=== PATIENT | female | born 1950 | race Caucasian/White ===

== ENCOUNTER 2018-04-14 04:38 | Inpatient (IN) | payer MEDICARE, MEDICAID ==
[~2018-04-14] VITALS: Ht 152.4 cm; Wt 52.4 kg
[2018-04-14] MEDS ORDERED: ALBUTEROL/IPRATROPIUM 2.5MG/0.5MG, 3 ML ONE (05:15)
[2018-04-14] MEDS ORDERED: ALBUTEROL/IPRATROPIUM 2.5MG/0.5MG, 3 ML NPPB ONE (05:30)
[2018-04-14] MEDS ORDERED: SODIUM CHLORIDE FLUSH 10ML SYR IVF ONE (05:30)
[2018-04-14] MEDS ORDERED: SODIUM CHLORIDE 0.9% 1,000ML IVBOLUS ONE (05:30)
[2018-04-14 05:49] LABS: BASOPHILS # (AUTO) 0.02 x10^3/uL (0-0.1); BASOPHILS % (AUTO) 0 % (0-1); EOSINOPHILS # (AUTO) 0.32 x10^3/uL (0-0.4); EOSINOPHILS % (AUTO) 5 % (1-7); LYMPHOCYTES # (AUTO) 1.58 x10^3/uL (1-3.4); LYMPHOCYTES % (AUTO) 22 % (22-44); MD NO; MEAN CORPUSCULAR HEMOGLOBIN 31.4 pg (27.0-34.8); MEAN CORPUSCULAR VOLUME 95.1 fL (80-100); MEAN PLATELET VOLUME 7.3 fL (7.4-10.4); MONOCYTES # (AUTO) 0.56 x10^3/uL (0.2-0.8); MONOCYTES % (AUTO) 8 % (2-9); NEUTROPHILS # (AUTO) 4.66 x10^3/uL (1.8-6.8); NEUTROPHILS % (AUTO) 65 % (42-75); PLATELET COUNT 307 x10^3/uL (130-400); RED BLOOD COUNT 4.23 x10^6/uL (3.82-5.3); RED CELL DISTRIBUTION WIDTH 13.4 % (9.6-15.2)
[2018-04-14] MEDS ORDERED: FLUT1DIS3 INH (05:58)
[2018-04-14] MEDS ORDERED: BIOT25005 PO (05:58)
[2018-04-14] MEDS ORDERED: MECL-76 PO (05:58)
[2018-04-14] MEDS ORDERED: PHEN100C4 PO (05:58)
[2018-04-14] MEDS ORDERED: CLOR3.75 PO (05:58)
[2018-04-14] MEDS ORDERED: TEMA15CA PO (05:58)
[2018-04-14] MEDS ORDERED: PRAV20TA2 PO (05:58)
[2018-04-14] MEDS ORDERED: LYSI500T25 PO (05:58)
[2018-04-14] MEDS ORDERED: POTA10TA11 PO (05:58)
[2018-04-14] MEDS ORDERED: MELA1TAB8 PO (05:58)
[2018-04-14] MEDS ORDERED: VALE445C2 PO (05:58)
[2018-04-14] MEDS ORDERED: CARB1TAB44 PO (05:58)
[2018-04-14] MEDS ORDERED: [UNRECOGNIZED DRUG - CODE] PO (05:58)
[2018-04-14] MEDS ORDERED: HYDR25TA11 PO (05:58)
[2018-04-14] MEDS ORDERED: DULO30CA2 PO (05:58)
[2018-04-14] MEDS ORDERED: POTA20TA89 PO (05:58)
[2018-04-14] MEDS ORDERED: GABA-827 PO (05:58)
[2018-04-14] MEDS ORDERED: SODI650T PO (05:58)
[2018-04-14] MEDS ORDERED: LATA2.5D3 EACHEYE (05:58)
[2018-04-14] MEDS ORDERED: SIME125C67 PO (05:58)
[2018-04-14] MEDS ORDERED: HYDR-3307 PO (05:58)
[2018-04-14] MEDS ORDERED: BUTA1CAP59 PO (05:58)
[2018-04-14] MEDS ORDERED: MIRT30TA6 PO (05:58)
[2018-04-14] MEDS ORDERED: BRIM5DRO2 OP (05:58)
[2018-04-14] MEDS ORDERED: HYDR40TA PO (05:58)
[2018-04-14] MEDS ORDERED: BUME0.5T PO (05:58)
[2018-04-14] MEDS ORDERED: TIZA4CAP PO (05:58)
[2018-04-14] MEDS ORDERED: ESTR1TAB15 PO (05:58)
[2018-04-14] MEDS ORDERED: PROM25TA10 PO (05:58)
[2018-04-14] MEDS ORDERED: GREE1CAP PO (05:58)
[2018-04-14] MEDS ORDERED: MONT10TA9 PO (05:58)
[2018-04-14] MEDS ORDERED: BENZ200C48 PO (05:58)
[2018-04-14] MEDS ORDERED: ESOM40CA PO (05:58)
[2018-04-14] MEDS ORDERED: LOSA1TAB19 PO (05:58)
[2018-04-14] MEDS ORDERED: [UNRECOGNIZED DRUG - CODE] OP (05:58)
[2018-04-14] MEDS ORDERED: CLOP75TA PO (05:58)
[2018-04-14 06:00] LABS: ALANINE AMINOTRANSFERASE 7 U/L (12-78); ALBUMIN 3.8 g/dL (3.4-5.0); ANION GAP 7 mmol/L (5-15); CALCIUM 8.4 mg/dL (8.5-10.1); CHLORIDE 105 mmol/L (98-107); CREATININE 0.52 mg/dL (0.55-1.02)
[2018-04-14 06:04] LABS: ALKALINE PHOSPHATASE 159 U/L (45-117); BILIRUBIN,TOTAL 0.3 mg/dL (0.2-1.0); TOTAL PROTEIN 6.9 g/dL (6.4-8.2); TROPONIN I < 0.015 ng/mL (0.000-0.045)
[2018-04-14] MEDS ORDERED: LEVOFLOXACIN/PMX 750MG/150ML 150 ML ONE (06:11)
[2018-04-14] MEDS ORDERED: LEVOFLOXACIN/PMX 750MG/150ML 150 ML IV ONE (06:30)
[2018-04-14 07:02] LABS: CULTURE INDICATED? YES; MICROSCOPIC INDICATED
[2018-04-14] MEDS: SODIUM CHLORIDE 0.9% 1,000 ML IV SCH ×2 (10:10→18:15)
[2018-04-14] MEDS ORDERED: hydrALAzine 20 MG/ML, 1ML IVPush PRN (10:30)
[2018-04-14] MEDS ORDERED: ACETAMINOPHEN 325 MG TABLET PO PRN (10:30)
[2018-04-14 10:55] LABS: THYROID STIMULATING HORMONE 1.53 mIU/L (0.358-3.740)
[2018-04-14 11:04] VITALS: BP 156/64
[2018-04-14] MEDS ORDERED: TEMPLATE NON-FORMULARY MED. (Brimonidine Tartrate/Timolol (Combigan Eye Drops) 1 DROP) OP SCH ×2 (12:00→12:34)
[2018-04-14] MEDS ORDERED: TEMPLATE NON-FORMULARY MED. (Biotin** 5,000 MG) PO SCH (12:00)
[2018-04-14] MEDS ORDERED: MECLIZINE CHEWABLE 25 MG TAB PO PRN (12:00)
[2018-04-14] MEDS ORDERED: BENZONATATE 100 MG CAPSULE PO PRN (12:00)
[2018-04-14] MEDS ORDERED: PROMETHAZINE 25MG TABLET PO PRN (12:00)
[2018-04-14] MEDS ORDERED: TEMAZEPAM 15 MG CAPSULE PO PRN (12:00)
[2018-04-14] MEDS ORDERED: HYDROCODONE BITARTRATE PO PRN (12:00)
[2018-04-14] MEDS ORDERED: LYSINE HCL 1000 MG PO SCH (12:00)
[2018-04-14] MEDS ORDERED: HYDROcodone/APAP 10/325 MG TABLET PO PRN (12:00)
[2018-04-14] MEDS ORDERED: FLUTICASONE/VILANTEROL 100-25MCG/INH INH SCH (12:00)
[2018-04-14] MEDS ORDERED: TEMPLATE NON-FORMULARY MED. (Losartan/Hydrochlorothiazide** (Losartan-Hctz 50-12.5 Mg Tab PO SCH (12:00)
[2018-04-14 12:33] VITALS: BP 126/76
[2018-04-14] MEDS: DULOXETINE 30 MG CAPSULE.DR PO SCH ×2 (13:09→21:39)
[2018-04-14] MEDS: GABAPENTIN 400 MG CAPSULE PO SCH ×3 (13:09→21:41)
[2018-04-14] MEDS: SIMETHICONE 80 MG CHEW TAB PO SCH (13:09)
[2018-04-14] MEDS: PHENYTOIN 100 MG CAPSULE PO SCH (13:09)
[2018-04-14] MEDS: CLOPIDOGREL 75 MG TABLET PO SCH (13:09)
[2018-04-14] MEDS: CARBIDOPA/LEVODOPA CR 50 MG/200 MG TABLET PO SCH ×3 (13:10→21:39)
[2018-04-14] MEDS: PANTOPROZOLE 40MG TABLET PO SCH (13:10)
[2018-04-14] MEDS ORDERED: LEVOFLOXACIN/PMX 500MG/100ML 100 ML IV SCH (15:30)
[2018-04-14] MEDS: TIZANIDINE 4MG TABLET PO SCH ×2 (16:00→21:38)
[2018-04-14 19:20] VITALS: BP_SYST 129; BP_SYST 130; BP_SYST 145; BP_DIAS 72; BP_DIAS 77; BP_DIAS 78
[2018-04-14] MEDS: MONTELUKAST 10 MG TABLET PO SCH (21:39)
[2018-04-14] MEDS: PYRIDOXINE 50MG TABLET PO SCH (21:40)
[2018-04-14] MEDS: MELATONIN 5 MG TABLET PO SCH (21:40)
[2018-04-14] MEDS: MIRTAZAPINE 30 MG TAB.RAPDIS PO SCH (21:41)
[2018-04-14] MEDS: PRAVASTATIN 20 MG TABLET PO SCH (21:41)
[2018-04-14] MEDS: TEMPLATE NON-FORMULARY MED. (Brimonidine Tartrate/Timolol (Combigan Eye Drops) 1 DROP) OP SCH (21:44)
[2018-04-14] MEDS: LATANOPROST OPHTH 0.005%, 2.5ML HOMEOPHTH SCH (21:44)
[2018-04-15 02:22] VITALS: BP 152/81
[2018-04-15] MEDS: SODIUM CHLORIDE 0.9% 1,000 ML IV SCH ×2 (02:27→11:30)
[2018-04-15] MEDS ORDERED: PHARMACOKINETIC MONITORING MC PRN (02:30)
[2018-04-15] MEDS ORDERED: VANCOMYCIN PMX 1GM/200ML 200 ML IV SCH (02:30)
[2018-04-15] MEDS ORDERED: PHARMACOKINETIC CONSULTATION MC ONE (02:30)
[2018-04-15] MEDS ORDERED: VANCOMYCIN PER PHARMACY MC PRN (02:30)
[2018-04-15 04:38] LABS: BASOPHILS # (AUTO) 0.02 x10^3/uL (0-0.1); BASOPHILS % (AUTO) 1 % (0-1); EOSINOPHILS # (AUTO) 0.16 x10^3/uL (0-0.4); EOSINOPHILS % (AUTO) 3 % (1-7); LYMPHOCYTES # (AUTO) 1.78 x10^3/uL (1-3.4); LYMPHOCYTES % (AUTO) 35 % (22-44); MD NO; MEAN CORPUSCULAR HEMOGLOBIN 31.9 pg (27.0-34.8); MEAN CORPUSCULAR HGB CONC 33.6 g/dL (32.4-35.8); MEAN CORPUSCULAR VOLUME 94.9 fL (80-100); MEAN PLATELET VOLUME 7.4 fL (7.4-10.4); MONOCYTES # (AUTO) 0.52 x10^3/uL (0.2-0.8); MONOCYTES % (AUTO) 10 % (2-9); NEUTROPHILS # (AUTO) 2.68 x10^3/uL (1.8-6.8); NEUTROPHILS % (AUTO) 52 % (42-75); PLATELET COUNT 232 x10^3/uL (130-400); RED BLOOD COUNT 3.35 x10^6/uL (3.82-5.3); RED CELL DISTRIBUTION WIDTH 13.2 % (9.6-15.2)
[2018-04-15 04:50] LABS: CALCIUM 7.4 mg/dL (8.5-10.1); CHLORIDE 109 mmol/L (98-107)
[2018-04-15 04:57] LABS: ANION GAP 6 mmol/L (5-15); CHOL/HDL RATIO 2.2; CHOLESTEROL, TOTAL 143 mg/dL (140-239); CREATININE 0.47 mg/dL (0.55-1.02); HDL CHOL % 45 % (28-40); HDL CHOLESTEROL (DIRECT) 64 mg/dL (40-60); LDL CHOLESTEROL,CALCULATED 58 mg/dL (54-169); LDL/HDL RATIO 0.9 (0.5-3.0); TRIGLYCERIDES 107 mg/dL (50-200); VLDL CHOLESTEROL 21 mg/dL (0-25)
[2018-04-15] MEDS: CARBIDOPA/LEVODOPA CR 50 MG/200 MG TABLET PO SCH ×4 (05:34→21:15)
[2018-04-15] MEDS ORDERED: CALCIUM CARBONATE 500 MG TAB.CHEW PO PRN (06:00)
[2018-04-15 06:46] LABS: FOLATE LEVEL 7.9 ng/mL (3.1-17.5)
[2018-04-15 07:03] VITALS: BP 146/77
[2018-04-15] MEDS ORDERED: HYDROCHLOROTHIAZIDE 12.5 MG CAPSULE PO SCH (09:00)
[2018-04-15] MEDS ORDERED: LOSARTAN 50MG TABLET PO SCH (09:00)
[2018-04-15] MEDS: FLUTICASONE/VILANTEROL 200-25MCG/INH INH SCH (09:55)
[2018-04-15] MEDS: GABAPENTIN 400 MG CAPSULE PO SCH ×3 (09:56→21:14)
[2018-04-15] MEDS: SIMETHICONE 80 MG CHEW TAB PO SCH (09:56)
[2018-04-15] MEDS: POTASSIUM CHLORIDE 10 MEQ TABLET.ER PO SCH (09:56)
[2018-04-15] MEDS: HYDROCHLOROTHIAZIDE 12.5 MG CAPSULE PO SCH (09:56)
[2018-04-15] MEDS: DULOXETINE 30 MG CAPSULE.DR PO SCH ×2 (09:56→21:15)
[2018-04-15] MEDS: CLOPIDOGREL 75 MG TABLET PO SCH (09:56)
[2018-04-15] MEDS: PHENYTOIN 100 MG CAPSULE PO SCH (09:57)
[2018-04-15] MEDS: LOSARTAN 50MG TABLET PO SCH (09:57)
[2018-04-15] MEDS: TEMPLATE NON-FORMULARY MED. (Brimonidine Tartrate/Timolol (Combigan Eye Drops) 1 DROP) OP SCH ×2 (09:57→21:00)
[2018-04-15] MEDS: TIZANIDINE 4MG TABLET PO SCH ×3 (09:57→21:15)
[2018-04-15] MEDS: PANTOPROZOLE 40MG TABLET PO SCH (09:57)
[2018-04-15 12:07] VITALS: BP 121/75
[2018-04-15] MEDS ORDERED: POTASSIUM CHLORIDE 20 MEQ TAB.ER.PRT PO ONE (15:30)
[2018-04-15] MEDS ORDERED: TIZA4TAB PO (16:35)
[2018-04-15] MEDS ORDERED: PHEN100C4 PO (16:35)
[2018-04-15] MEDS ORDERED: FLUT1DIS3 INH (16:35)
[2018-04-15 19:30] VITALS: BP 162/82
[2018-04-15] MEDS: LATANOPROST OPHTH 0.005%, 2.5ML HOMEOPHTH SCH (21:00)
[2018-04-15] MEDS: PYRIDOXINE 50MG TABLET PO SCH (21:14)
[2018-04-15] MEDS: MONTELUKAST 10 MG TABLET PO SCH (21:14)
[2018-04-15] MEDS: MELATONIN 5 MG TABLET PO SCH (21:14)
[2018-04-15] MEDS: PRAVASTATIN 20 MG TABLET PO SCH (21:15)
[2018-04-15] MEDS: MIRTAZAPINE 30 MG TAB.RAPDIS PO SCH (21:15)
[2018-04-15] MEDS: HYDROcodone/APAP 10/325 MG TABLET PO PRN (21:24)
[2018-04-16] MEDS ORDERED: VANCOMYCIN PMX 1GM/200ML 200 ML IV SCH (02:30)
[2018-04-16 03:32] VITALS: BP 157/76
[2018-04-16 04:50] LABS: BASOPHILS # (AUTO) 0.02 x10^3/uL (0-0.1); BASOPHILS % (AUTO) 1 % (0-1); EOSINOPHILS # (AUTO) 0.36 x10^3/uL (0-0.4); EOSINOPHILS % (AUTO) 7 % (1-7); LYMPHOCYTES # (AUTO) 1.72 x10^3/uL (1-3.4); LYMPHOCYTES % (AUTO) 35 % (22-44); MD NO; MEAN CORPUSCULAR HEMOGLOBIN 31.4 pg (27.0-34.8); MEAN CORPUSCULAR VOLUME 95.3 fL (80-100); MEAN PLATELET VOLUME 7.3 fL (7.4-10.4); MONOCYTES # (AUTO) 0.44 x10^3/uL (0.2-0.8); MONOCYTES % (AUTO) 9 % (2-9); NEUTROPHILS # (AUTO) 2.37 x10^3/uL (1.8-6.8); NEUTROPHILS % (AUTO) 48 % (42-75); PLATELET COUNT 212 x10^3/uL (130-400); RED BLOOD COUNT 3.41 x10^6/uL (3.82-5.3); RED CELL DISTRIBUTION WIDTH 13.2 % (9.6-15.2)
[2018-04-16 04:59] LABS: % IRON SATURATION 24 % (20-55); ANION GAP 6 mmol/L (5-15); CHLORIDE 105 mmol/L (98-107); CREATININE 0.45 mg/dL (0.55-1.02); IRON LEVEL 77 mcg/dL (50-170); TOTAL IRON BINDING CAPACITY 319 mcg/dL (250-450)
[2018-04-16] MEDS: CARBIDOPA/LEVODOPA CR 50 MG/200 MG TABLET PO SCH ×4 (05:28→21:40)
[2018-04-16 07:09] VITALS: BP 167/79
[2018-04-16] MEDS ORDERED: TIZANIDINE 4MG TABLET PO PRN (09:00)
[2018-04-16] MEDS: FLUTICASONE/VILANTEROL 200-25MCG/INH INH SCH (09:12)
[2018-04-16] MEDS: TEMPLATE NON-FORMULARY MED. (Brimonidine Tartrate/Timolol (Combigan Eye Drops) 1 DROP) OP SCH ×2 (09:12→21:38)
[2018-04-16] MEDS: GABAPENTIN 400 MG CAPSULE PO SCH ×3 (09:12→21:40)
[2018-04-16] MEDS: POTASSIUM CHLORIDE 10 MEQ TABLET.ER PO SCH (09:13)
[2018-04-16] MEDS: HYDROCHLOROTHIAZIDE 12.5 MG CAPSULE PO SCH (09:13)
[2018-04-16] MEDS: PANTOPROZOLE 40MG TABLET PO SCH (09:13)
[2018-04-16] MEDS: SIMETHICONE 80 MG CHEW TAB PO SCH (09:13)
[2018-04-16] MEDS: LOSARTAN 50MG TABLET PO SCH (09:13)
[2018-04-16] MEDS: CLOPIDOGREL 75 MG TABLET PO SCH (09:14)
[2018-04-16] MEDS: DULOXETINE 30 MG CAPSULE.DR PO SCH ×2 (09:14→21:40)
[2018-04-16] MEDS: CYANOCOBALAMIN 1,000 MCG TABLET PO SCH (09:14)
[2018-04-16] MEDS: PHENYTOIN 100 MG CAPSULE PO SCH ×3 (09:15→21:40)
[2018-04-16] MEDS: CEFTRIAXONE 2 GM in SODIUM CHLORIDE 0.9% 50 ML IV SCH (11:02)
[2018-04-16] MEDS: ENOXAPARIN 40 MG/0.4 ML SQ SCH (11:18)
[2018-04-16] MEDS: AZITHROMYCIN 500 MG in SODIUM CHLORIDE 0.9% 250 ML IV SCH (11:53)
[2018-04-16 13:04] VITALS: BP 154/84
[2018-04-16] MEDS ORDERED: ASA/APAP/ CAFFEINE TABLET PO PRN (13:30)
[2018-04-16 19:48] VITALS: BP 162/87
[2018-04-16] MEDS: LATANOPROST OPHTH 0.005%, 2.5ML HOMEOPHTH SCH (21:38)
[2018-04-16] MEDS: PYRIDOXINE 50MG TABLET PO SCH (21:39)
[2018-04-16] MEDS: MONTELUKAST 10 MG TABLET PO SCH (21:39)
[2018-04-16] MEDS: MELATONIN 5 MG TABLET PO SCH (21:39)
[2018-04-16] MEDS: PRAVASTATIN 20 MG TABLET PO SCH (21:40)
[2018-04-16] MEDS: MIRTAZAPINE 30 MG TAB.RAPDIS PO SCH (21:40)
[2018-04-16] MEDS: HYDROcodone/APAP 10/325 MG TABLET PO PRN (21:46)
[2018-04-17 00:43] VITALS: BP_SYST 125; BP_SYST 130; BP_DIAS 72; BP_DIAS 75; BP_DIAS 76
[2018-04-17] MEDS: CARBIDOPA/LEVODOPA CR 50 MG/200 MG TABLET PO SCH (05:43)
[2018-04-17 08:47] VITALS: BP 152/80
[2018-04-17] MEDS: FLUTICASONE/VILANTEROL 200-25MCG/INH INH SCH (08:51)
[2018-04-17] MEDS: PHENYTOIN 100 MG CAPSULE PO SCH ×3 (08:52→22:13)
[2018-04-17] MEDS: CLOPIDOGREL 75 MG TABLET PO SCH (08:52)
[2018-04-17] MEDS: TEMPLATE NON-FORMULARY MED. (Brimonidine Tartrate/Timolol (Combigan Eye Drops) 1 DROP) OP SCH ×2 (08:52→22:13)
[2018-04-17] MEDS: CYANOCOBALAMIN 1,000 MCG TABLET PO SCH (08:52)
[2018-04-17] MEDS: POTASSIUM CHLORIDE 10 MEQ TABLET.ER PO SCH (08:53)
[2018-04-17] MEDS: LOSARTAN 50MG TABLET PO SCH (08:53)
[2018-04-17] MEDS: HYDROCHLOROTHIAZIDE 12.5 MG CAPSULE PO SCH (08:53)
[2018-04-17] MEDS: CEFTRIAXONE 2 GM in SODIUM CHLORIDE 0.9% 50 ML IV SCH (11:28)
[2018-04-17] MEDS: ENOXAPARIN 40 MG/0.4 ML SQ SCH (11:29)
[2018-04-17] MEDS: HYDROcodone/APAP 10/325 MG TABLET PO PRN ×2 (11:35→22:21)
[2018-04-17 12:45] VITALS: BP 179/79
[2018-04-17] MEDS: AZITHROMYCIN 500 MG in SODIUM CHLORIDE 0.9% 250 ML IV SCH (13:10)
[2018-04-17] MEDS: GABAPENTIN 400 MG CAPSULE PO SCH ×2 (18:04→22:13)
[2018-04-17 20:00] VITALS: BP 185/80
[2018-04-17] MEDS: PRAVASTATIN 20 MG TABLET PO SCH (22:12)
[2018-04-17] MEDS: MELATONIN 5 MG TABLET PO SCH (22:12)
[2018-04-17] MEDS: PYRIDOXINE 50MG TABLET PO SCH (22:12)
[2018-04-17] MEDS: MONTELUKAST 10 MG TABLET PO SCH (22:13)
[2018-04-17] MEDS: LATANOPROST OPHTH 0.005%, 2.5ML HOMEOPHTH SCH (22:14)
[2018-04-17] MEDS ORDERED: hydrALAzine 20 MG/ML, 1ML IV PRN (23:30)
[2018-04-17] MEDS ORDERED: hydrALAzine 20 MG/ML, 1ML ONE (23:44)
[2018-04-17 23:47] VITALS: BP 114/66
[2018-04-18 02:00] VITALS: BP 145/76
[2018-04-18] MEDS ORDERED: hydrALAzine 20 MG/ML, 1ML IV PRN (03:30)
[2018-04-18 07:05] VITALS: BP 174/97
[2018-04-18] MEDS: FLUTICASONE/VILANTEROL 200-25MCG/INH INH SCH (07:58)
[2018-04-18] MEDS: LOSARTAN 50MG TABLET PO SCH (07:58)
[2018-04-18] MEDS: POTASSIUM CHLORIDE 10 MEQ TABLET.ER PO SCH (07:58)
[2018-04-18] MEDS: TEMPLATE NON-FORMULARY MED. (Brimonidine Tartrate/Timolol (Combigan Eye Drops) 1 DROP) OP SCH ×2 (07:58→21:41)
[2018-04-18] MEDS: CYANOCOBALAMIN 1,000 MCG TABLET PO SCH (07:59)
[2018-04-18] MEDS: GABAPENTIN 400 MG CAPSULE PO SCH ×3 (07:59→22:42)
[2018-04-18] MEDS: PHENYTOIN 100 MG CAPSULE PO SCH ×3 (07:59→22:41)
[2018-04-18] MEDS: HYDROCHLOROTHIAZIDE 12.5 MG CAPSULE PO SCH (07:59)
[2018-04-18] MEDS: CLOPIDOGREL 75 MG TABLET PO SCH (07:59)
[2018-04-18] MEDS: HYDROcodone/APAP 10/325 MG TABLET PO PRN (08:11)
[2018-04-18 10:23] VITALS: BP 130/79
[2018-04-18] MEDS: CEFTRIAXONE 2 GM in SODIUM CHLORIDE 0.9% 50 ML IV SCH (10:55)
[2018-04-18] MEDS: ENOXAPARIN 40 MG/0.4 ML SQ SCH (10:56)
[2018-04-18] MEDS: CARBIDOPA/LEVODOPA CR 50 MG/200 MG TABLET PO SCH ×3 (11:20→22:41)
[2018-04-18] MEDS: AZITHROMYCIN 500 MG in SODIUM CHLORIDE 0.9% 250 ML IV SCH (12:04)
[2018-04-18 12:22] VITALS: BP 160/74
[2018-04-18 19:41] VITALS: BP 142/78
[2018-04-18] MEDS: PRAVASTATIN 20 MG TABLET PO SCH (21:40)
[2018-04-18] MEDS: PYRIDOXINE 50MG TABLET PO SCH (21:40)
[2018-04-18] MEDS: LATANOPROST OPHTH 0.005%, 2.5ML HOMEOPHTH SCH (21:42)
[2018-04-18] MEDS: MONTELUKAST 10 MG TABLET PO SCH (22:42)
[2018-04-18] MEDS: MELATONIN 5 MG TABLET PO SCH (22:42)
[2018-04-19 00:46] VITALS: BP 145/84
[2018-04-19] MEDS: HYDROcodone/APAP 10/325 MG TABLET PO PRN ×2 (02:16→17:35)
[2018-04-19 05:17] LABS: ANION GAP 8 mmol/L (5-15); CALCIUM 8.6 mg/dL (8.5-10.1); CHLORIDE 102 mmol/L (98-107); CREATININE 0.51 mg/dL (0.55-1.02)
[2018-04-19] MEDS: CARBIDOPA/LEVODOPA CR 50 MG/200 MG TABLET PO SCH ×4 (06:01→21:56)
[2018-04-19] MEDS ORDERED: FENTANYL PF 250 MCG/5ML ONE (07:11)
[2018-04-19] MEDS ORDERED: MIDAZOLAM 1 MG/ML, 2ML ONE (07:11)
[2018-04-19] MEDS ORDERED: ROCURONIUM 10MG/ML,5ML ONE (07:12)
[2018-04-19 07:13] VITALS: BP 148/84
[2018-04-19] MEDS ORDERED: PROPOFOL 10 MG/ML, 20ML ONE (07:13)
[2018-04-19] MEDS ORDERED: LIDOCAINE-MPF 2% ,5ML ONE (07:13)
[2018-04-19] MEDS ORDERED: CEFAZOLIN 1,000 MG ONE ×2 (07:14)
[2018-04-19] MEDS ORDERED: WATER-INJECTION,STERILE 10 ML IV ONE (07:14)
[2018-04-19] MEDS ORDERED: DEXAMETHASONE 4 MG/ML, 1ML ONE ×2 (07:15)
[2018-04-19] MEDS ORDERED: REMIFENTANIL 1 MG ONE (07:17)
[2018-04-19] MEDS ORDERED: CLEVIDIPINE 100 ML IV ONE (07:24)
[2018-04-19] MEDS ORDERED: THROMBIN 20,000 UNIT VIAL TP ONE (07:28)
[2018-04-19] MEDS ORDERED: BUPIVACAINE/PF 0.25% ONE (07:28)
[2018-04-19] MEDS ORDERED: HEPARIN 1,000 UNITS/ML, 10ML ONE (07:28)
[2018-04-19] MEDS ORDERED: PAPAVERINE 30 MG/ML, 2ML ONE (07:28)
[2018-04-19] MEDS ORDERED: LIDOCAINE/PF 1%, 30ML ONE (07:28)
[2018-04-19] MEDS ORDERED: PROTAMINE SULFATE 10 MG/ML, 5ML ONE (07:28)
[2018-04-19] MEDS ORDERED: BACITRACIN 50,000 UNIT ONE (07:29)
[2018-04-19] MEDS ORDERED: EPINEPHRINE 1 MG/ML, 1ML ONE (07:29)
[2018-04-19] MEDS ORDERED: PHENYLEPHRINE 10 MG/ML ONE (08:03)
[2018-04-19] MEDS ORDERED: BUPIVACAINE/PF 0.25% INFIL ONE (08:52)
[2018-04-19] MEDS ORDERED: HEPARIN 1,000 UNITS/ML, 10ML IV ONE (08:52)
[2018-04-19] MEDS: POTASSIUM CHLORIDE 10 MEQ TABLET.ER PO SCH (09:00)
[2018-04-19] MEDS: HYDROCHLOROTHIAZIDE 12.5 MG CAPSULE PO SCH (09:00)
[2018-04-19] MEDS: PHENYTOIN 100 MG CAPSULE PO SCH ×3 (09:00→21:55)
[2018-04-19] MEDS: CYANOCOBALAMIN 1,000 MCG TABLET PO SCH (09:00)
[2018-04-19] MEDS: TEMPLATE NON-FORMULARY MED. (Brimonidine Tartrate/Timolol (Combigan Eye Drops) 1 DROP) OP SCH ×2 (09:00→21:57)
[2018-04-19] MEDS: FLUTICASONE/VILANTEROL 200-25MCG/INH INH SCH (09:00)
[2018-04-19] MEDS: LOSARTAN 50MG TABLET PO SCH (09:00)
[2018-04-19] MEDS: CLOPIDOGREL 75 MG TABLET PO SCH (09:00)
[2018-04-19] MEDS: GABAPENTIN 400 MG CAPSULE PO SCH ×3 (09:00→21:56)
[2018-04-19] MEDS ORDERED: ACETAMINOPHEN 325 MG TABLET PO PRN (10:00)
[2018-04-19] MEDS ORDERED: MEPERIDINE/PF 25MG/0.5ML IVPush PRN (10:00)
[2018-04-19] MEDS ORDERED: HYDROmorphone 1 MG/ML, 1ML IV PRN (10:00)
[2018-04-19] MEDS ORDERED: OXYcodone 5 MG/5 ML ORAL.SOL UDC PO PRN (10:00)
[2018-04-19] MEDS ORDERED: HALOPERIDOL 5 MG/ML IV PRN (10:00)
[2018-04-19] MEDS ORDERED: PROMETHAZINE 25 MG/ML, 1ML IV PRN (10:00)
[2018-04-19] MEDS ORDERED: FENTANYL PF 100 MCG/2ML IV PRN (10:00)
[2018-04-19] MEDS ORDERED: FENTANYL PF 100 MCG/2ML ONE (10:17)
[2018-04-19] MEDS: ENOXAPARIN 40 MG/0.4 ML SQ SCH (10:30)
[2018-04-19] MEDS: CEFTRIAXONE PMX 2GM/50ML 50 ML IV SCH (10:30)
[2018-04-19] MEDS ORDERED: CEFAZOLIN PMX 1GM/50ML 50 ML IVPB SCH (10:30)
[2018-04-19] MEDS: AZITHROMYCIN 500 MG in SODIUM CHLORIDE 0.9% 250 ML IV SCH (12:00)
[2018-04-19] MEDS ORDERED: OXYcodone 5 MG/5 ML ORAL.SOL UDC ONE (12:17)
[2018-04-19] MEDS ORDERED: ACETAMINOPHEN 650 MG/20.3 ML UDC ONE (12:17)
[2018-04-19 14:04] VITALS: BP 167/80
[2018-04-19] MEDS: D5%-0.45% NACL 1,000 ML IV SCH ×2 (14:36→23:17)
[2018-04-19] MEDS: LABETALOL 5MG/ML, 20ML IVPush SCH ×2 (14:37→18:16)
[2018-04-19 18:16] VITALS: BP 158/73
[2018-04-19] MEDS: CEFAZOLIN 1,000 MG in SODIUM CHLORIDE 0.9% 50 ML IVPB SCH (18:16)
[2018-04-19] MEDS ORDERED: CEFAZOLIN 1,000 MG in DEXTROSE 5% 50 ML IVPB SCH (18:30)
[2018-04-19] MEDS: PYRIDOXINE 50MG TABLET PO SCH (21:55)
[2018-04-19] MEDS: PRAVASTATIN 20 MG TABLET PO SCH (21:56)
[2018-04-19] MEDS: MONTELUKAST 10 MG TABLET PO SCH (21:56)
[2018-04-19] MEDS: LATANOPROST OPHTH 0.005%, 2.5ML HOMEOPHTH SCH (21:56)
[2018-04-19] MEDS: MELATONIN 5 MG TABLET PO SCH (21:57)
[2018-04-20 02:10] VITALS: BP 119/69
[2018-04-20] MEDS: LABETALOL 5MG/ML, 20ML IVPush SCH (03:27)
[2018-04-20] MEDS: CEFAZOLIN 1,000 MG in SODIUM CHLORIDE 0.9% 50 ML IVPB SCH (03:28)
[2018-04-20] MEDS: CARBIDOPA/LEVODOPA CR 50 MG/200 MG TABLET PO SCH ×4 (05:48→20:10)
[2018-04-20 06:33] VITALS: BP 134/71
[2018-04-20] MEDS: TEMPLATE NON-FORMULARY MED. (Brimonidine Tartrate/Timolol (Combigan Eye Drops) 1 DROP) OP SCH ×2 (10:28→20:11)
[2018-04-20] MEDS: HYDROCHLOROTHIAZIDE 12.5 MG CAPSULE PO SCH (10:32)
[2018-04-20] MEDS: CYANOCOBALAMIN 1,000 MCG TABLET PO SCH (10:33)
[2018-04-20] MEDS: CLOPIDOGREL 75 MG TABLET PO SCH (10:34)
[2018-04-20] MEDS: LOSARTAN 50MG TABLET PO SCH (10:34)
[2018-04-20] MEDS: PHENYTOIN 100 MG CAPSULE PO SCH ×3 (10:36→20:09)
[2018-04-20] MEDS: POTASSIUM CHLORIDE 10 MEQ TABLET.ER PO SCH (10:37)
[2018-04-20] MEDS: GABAPENTIN 400 MG CAPSULE PO SCH ×3 (10:38→20:09)
[2018-04-20] MEDS: ENOXAPARIN 40 MG/0.4 ML SQ SCH (10:43)
[2018-04-20] MEDS: FLUTICASONE/VILANTEROL 200-25MCG/INH INH SCH (10:54)
[2018-04-20] MEDS: CEFTRIAXONE PMX 2GM/50ML 50 ML IV SCH (10:59)
[2018-04-20] MEDS: AZITHROMYCIN 500 MG in SODIUM CHLORIDE 0.9% 250 ML IV SCH (12:16)
[2018-04-20 15:25] VITALS: BP 160/68
[2018-04-20] MEDS: HYDROcodone/APAP 10/325 MG TABLET PO PRN ×2 (15:36→21:42)
[2018-04-20 19:13] VITALS: BP 149/69
[2018-04-20] MEDS: PYRIDOXINE 50MG TABLET PO SCH (20:09)
[2018-04-20] MEDS: PRAVASTATIN 20 MG TABLET PO SCH (20:10)
[2018-04-20] MEDS: MELATONIN 5 MG TABLET PO SCH (20:10)
[2018-04-20] MEDS: MONTELUKAST 10 MG TABLET PO SCH (20:11)
[2018-04-20] MEDS: LATANOPROST OPHTH 0.005%, 2.5ML HOMEOPHTH SCH (20:11)
[2018-04-21 01:44] VITALS: BP 134/65
[2018-04-21] MEDS: CARBIDOPA/LEVODOPA CR 50 MG/200 MG TABLET PO SCH (05:35)
[2018-04-21] MEDS: HYDROcodone/APAP 10/325 MG TABLET PO PRN (05:40)
[2018-04-21 07:33] VITALS: BP 147/75
[2018-04-21] MEDS: FLUTICASONE/VILANTEROL 200-25MCG/INH INH SCH (08:28)
[2018-04-21] MEDS: CLOPIDOGREL 75 MG TABLET PO SCH (08:29)
[2018-04-21] MEDS: ENOXAPARIN 40 MG/0.4 ML SQ SCH (08:29)
[2018-04-21] MEDS: HYDROCHLOROTHIAZIDE 12.5 MG CAPSULE PO SCH (08:29)
[2018-04-21] MEDS: CYANOCOBALAMIN 1,000 MCG TABLET PO SCH (08:29)
[2018-04-21] MEDS: PHENYTOIN 100 MG CAPSULE PO SCH (08:29)
[2018-04-21] MEDS: GABAPENTIN 400 MG CAPSULE PO SCH (08:29)
[2018-04-21] MEDS: LOSARTAN 50MG TABLET PO SCH (08:29)
[2018-04-21] MEDS: POTASSIUM CHLORIDE 10 MEQ TABLET.ER PO SCH (08:29)
[2018-04-21] MEDS: TEMPLATE NON-FORMULARY MED. (Brimonidine Tartrate/Timolol (Combigan Eye Drops) 1 DROP) OP SCH (08:33)
== END 2018-04-21 12:30 | disposition home or self-care (01) | DRG 853 ==
LOC: MERGE 08:13 → ED 08:13 → 4WST 08:15
PROVIDERS: ADMIT Internal Medicine Pulmonary Disease; ATTEND Internal Medicine Pulmonary Disease
PROC: 03UM0JZ Supplement Right External Carotid Artery with Synthetic Substitute, Open Approach (ICD-10-PCS; 2018-04-19)
PROC: 03CM0ZZ Extirpation of Matter from Right External Carotid Artery, Open Approach (ICD-10-PCS; principal; 2018-04-19 08:00)
DX: A41.9 Sepsis, unspecified organism (principal); J15.9 Unspecified bacterial pneumonia; J44.0 Chronic obstructive pulmonary disease with (acute) lower respiratory infection; J44.1 Chronic obstructive pulmonary disease with (acute) exacerbation; N30.00 Acute cystitis without hematuria; I65.21 Occlusion and stenosis of right carotid artery; G62.9 Polyneuropathy, unspecified; D64.9 Anemia, unspecified; E78.5 Hyperlipidemia, unspecified; E87.6 Hypokalemia; G40.909 Epilepsy, unspecified, not intractable, without status epilepticus; G89.29 Other chronic pain; H40.9 Unspecified glaucoma; I10 Essential (primary) hypertension; R09.02 Hypoxemia; R29.6 Repeated falls; Z80.1 Family history of malignant neoplasm of trachea, bronchus and lung; Z82.49 Family history of ischemic heart disease and other diseases of the circulatory system; Z87.11 Personal history of peptic ulcer disease; Z87.891 Personal history of nicotine dependence; Z88.0 Allergy status to penicillin; Z91.81 History of falling; R07.2 Precordial pain
CPT/HCPCS: 36415; 70450; 71045; 80048; 80053; 80061; 80185; 81001; 82306; 82607; 82728; 82746; 82977; 83540; 83550; 83605; 83880; 84443; 84484; 85025; 85379; 87040; 87070; 87086; 87205; 93005; 93306; 93880; 94640; 96365; 96366; C1729; J0171; J0456; J0690; J0696; J1100; J1644; J1650; J1956; J2250; J2704; J2720; J3010; J3370; J3490; J7620; C1781; C9248; J2370; J2440; J7030; J7050; Q0177

== ENCOUNTER 2018-05-30 17:49 | Emergency (ER) | payer MEDICARE, MEDICAID ==
[~2018-05-30] VITALS: Ht 152.4 cm; Wt 50.0 kg
[~2018-05-30 17:49] MED LIST: BENZ200C48 PO; BIOT25005 PO; BRIM5DRO2 OP; BUME0.5T PO; BUTA1CAP59 PO; CARB1TAB44 PO; CLOP75TA PO; CLOR3.75 PO; DULO30CA2 PO; ESOM40CA PO; ESTR1TAB15 PO; FLUT1DIS3 INH; GABA-827 PO; GREE1CAP PO; HYDR-3307 PO; HYDR25TA11 PO; HYDR40TA PO; LATA2.5D3 EACHEYE; LOSA1TAB19 PO; LYSI500T25 PO; MECL-76 PO; MELA1TAB8 PO; MIRT30TA6 PO; MONT10TA9 PO; PHEN100C4 PO; POTA10TA11 PO; POTA20TA89 PO; PRAV20TA2 PO; PROM25TA10 PO; SIME125C67 PO; SODI650T PO; TEMA15CA PO; TIZA4CAP PO; TIZA4TAB PO; VALE445C2 PO; [UNRECOGNIZED DRUG - CODE] OP; [UNRECOGNIZED DRUG - CODE] PO
[2018-05-30 17:59] VITALS: BP 111/69
[2018-05-30] MEDS ORDERED: PROPARACAINE OPHTH 0.5%, 15ML ONE (18:12)
[2018-05-30] MEDS ORDERED: FLUORESCEIN OPHTHALMIC 1 MG STRIP EACHEYE ONE (18:30)
[2018-05-30] MEDS ORDERED: PROPARACAINE OPHTH 0.5%, 15ML EACHEYE ONE (18:30)
== END 2018-05-30 19:35 | disposition home or self-care (01) ==
LOC: ED 18:50
DX: H54.3 Unqualified visual loss, both eyes (principal); Z87.891 Personal history of nicotine dependence; I10 Essential (primary) hypertension; J44.9 Chronic obstructive pulmonary disease, unspecified; H40.9 Unspecified glaucoma
CPT/HCPCS: 99283

== ENCOUNTER → 2018-07-30 | Outpatient (CLI) | payer MEDICARE, MEDICAID | END | disposition home or self-care (01) | LOC: CARD 08:57 | PROVIDERS: ATTEND Nurse Practitioner Family | DX: G40.909 Epilepsy, unspecified, not intractable, without status epilepticus (principal) | CPT/HCPCS: 95819 ==

== ENCOUNTER 2018-08-18 01:35 | Inpatient (IN) | payer MEDICARE, MEDICAID ==
[~2018-08-18] VITALS: Ht 152.4 cm; Wt 50.9 kg
[2018-08-18] MEDS ORDERED: LIDOCAINE 1%, 10ML INFIL ONE (02:00)
[2018-08-18] MEDS ORDERED: SODIUM CHLORIDE FLUSH 10ML SYR IVF ONE (02:00)
[2018-08-18] MEDS ORDERED: SODIUM CHLORIDE 0.9% 1,000ML IVBOLUS ONE ×3 (02:00→04:00)
[2018-08-18 02:20] LABS: BASOPHILS % (AUTO) 0 % (0-1); EOSINOPHILS # (AUTO) 0.16 x10^3/uL (0-0.4); EOSINOPHILS % (AUTO) 1 % (1-7); LYMPHOCYTES # (AUTO) 1.04 x10^3/uL (1-3.4); LYMPHOCYTES % (AUTO) 9 % (22-44); MD NO; MEAN CORPUSCULAR HEMOGLOBIN 26.8 pg (27.0-34.8); MEAN CORPUSCULAR HGB CONC 31.8 g/dL (32.4-35.8); MEAN CORPUSCULAR VOLUME 84.2 fL (80-100); MEAN PLATELET VOLUME 7.4 fL (7.4-10.4); MONOCYTES # (AUTO) 0.56 x10^3/uL (0.2-0.8); MONOCYTES % (AUTO) 5 % (2-9); NEUTROPHILS # (AUTO) 10.19 x10^3/uL (1.8-6.8); NEUTROPHILS % (AUTO) 85 % (42-75); PLATELET COUNT 280 x10^3/uL (130-400); RED BLOOD COUNT 3.99 x10^6/uL (3.82-5.3); RED CELL DISTRIBUTION WIDTH 16.9 % (9.6-15.2)
[2018-08-18 02:28] LABS: INTERNATIONAL NORMALIZED RATIO 1.03 (0.93-1.1); PROTHROMBIN TIME 10.7 Seconds (9.6-11.5)
[2018-08-18 02:30] LABS: ALANINE AMINOTRANSFERASE 8 U/L (12-78); ALBUMIN 3.4 g/dL (3.4-5.0); ANION GAP 10 mmol/L (5-15); CALCIUM 8.1 mg/dL (8.5-10.1); CHLORIDE 102 mmol/L (98-107); CREATININE 1.37 mg/dL (0.55-1.02)
[2018-08-18 02:34] LABS: ALKALINE PHOSPHATASE 303 U/L (45-117); BILIRUBIN,TOTAL 0.5 mg/dL (0.2-1.0); TROPONIN I < 0.015 ng/mL (0.000-0.045)
[2018-08-18] MEDS ORDERED: HYDR-3240 PO (02:47)
[2018-08-18] MEDS ORDERED: LIDOCAINE-MPF 2%, 2ML ONE (04:09)
[2018-08-18 04:15] LABS: CULTURE INDICATED? YES; MICROSCOPIC INDICATED
[2018-08-18 04:25] LABS: AMPHETAMINE SCREEN, URINE Negative (Negative); BARBITURATE SCREEN, URINE Positive (Negative); BENZODIAZEPINE SCREEN, URINE Negative (Negative); CANNABINOID SCREEN, URINE Negative (Negative); COCAINE SCREEN, URINE Negative (Negative); METHADONE SCREEN, URINE Negative (Negative); OPIATE SCREEN, URINE Positive (Negative)
[2018-08-18] MEDS ORDERED: NOREPINEPHRINE 4 MG in SODIUM CHLORIDE 0.9% 246 ML IV PRN (04:57)
[2018-08-18] MEDS: NS + 20MEQ KCL 1,000 ML IV SCH ×2 (07:24→17:47)
[2018-08-18] MEDS ORDERED: POLYETHYLENE GLYCOL 17 GM PACKET PO PRN (07:30)
[2018-08-18] MEDS ORDERED: BISACODYL 10 MG SUPP PR PRN (07:30)
[2018-08-18] MEDS ORDERED: ENOXAPARIN 40 MG/0.4 ML SQ SCH (07:30)
[2018-08-18] MEDS ORDERED: ONDANSETRON ODT 4 MG PO PRN (07:30)
[2018-08-18] MEDS ORDERED: DOCUSATE 100 MG CAPSULE PO PRN (07:30)
[2018-08-18] MEDS ORDERED: ACETAMINOPHEN 325 MG TABLET PO PRN (07:30)
[2018-08-18] MEDS ORDERED: NS + 20MEQ KCL 1,000 ML IV ONE (07:48)
[2018-08-18] MEDS ORDERED: ENOXAPARIN 40 MG/0.4 ML ONE (08:08)
[2018-08-18] MEDS ORDERED: TEMPLATE NON-FORMULARY MED. (Clopidogrel Bisulfate** (Clopidogrel**) 75 MG) PO SCH (09:00)
[2018-08-18] MEDS: PHENYTOIN 100 MG CAPSULE PO SCH ×3 (10:08→21:18)
[2018-08-18] MEDS: GABAPENTIN 400 MG CAPSULE PO SCH ×3 (10:08→21:19)
[2018-08-18] MEDS: CARBIDOPA/LEVODOPA CR 50 MG/200 MG TABLET PO SCH ×4 (10:08→21:19)
[2018-08-18] MEDS: DEXAMETH OP SCH ×3 (10:08→21:00)
[2018-08-18] MEDS: NEO OP SCH ×3 (10:08→21:00)
[2018-08-18] MEDS: POLYMYX B SULF OP SCH ×3 (10:08→21:00)
[2018-08-18 18:08] VITALS: BP 114/53
[2018-08-18 19:01] VITALS: BP 104/58
[2018-08-18] MEDS ORDERED: LATANOPROST OPHTH 0.005%, 2.5ML EACHEYE SCH (21:00)
[2018-08-18] MEDS ORDERED: MELATONIN 5 MG TABLET PO SCH (21:00)
[2018-08-18] MEDS ORDERED: MONTELUKAST 10 MG TABLET PO SCH (21:00)
[2018-08-18] MEDS ORDERED: PRAVASTATIN 20 MG TABLET PO SCH (21:00)
[2018-08-18] MEDS: HYDROcodone/APAP 5/325 TABLET PO PRN ×2 (21:28→22:37)
[2018-08-19 02:55] VITALS: BP 107/53
[2018-08-19] MEDS: NS + 20MEQ KCL 1,000 ML IV SCH (04:32)
[2018-08-19] MEDS: CARBIDOPA/LEVODOPA CR 50 MG/200 MG TABLET PO SCH ×2 (04:53→12:21)
[2018-08-19] MEDS: HYDROcodone/APAP 5/325 TABLET PO PRN (04:53)
[2018-08-19 06:14] LABS: MEAN CORPUSCULAR HEMOGLOBIN 27.8 pg (27.0-34.8); MEAN CORPUSCULAR HGB CONC 32.9 g/dL (32.4-35.8); MEAN CORPUSCULAR VOLUME 84.5 fL (80-100); MEAN PLATELET VOLUME 7.5 fL (7.4-10.4); PLATELET COUNT 198 x10^3/uL (130-400); RED BLOOD COUNT 3.42 x10^6/uL (3.82-5.3); RED CELL DISTRIBUTION WIDTH 16.4 % (9.6-15.2)
[2018-08-19 06:20] LABS: ALBUMIN 2.6 g/dL (3.4-5.0); ANION GAP 6 mmol/L (5-15); CALCIUM 7.4 mg/dL (8.5-10.1); CHLORIDE 114 mmol/L (98-107); CREATININE 0.47 mg/dL (0.55-1.02)
[2018-08-19 06:21] LABS: ALANINE AMINOTRANSFERASE < 6 U/L (12-78)
[2018-08-19 06:23] LABS: ALKALINE PHOSPHATASE 176 U/L (45-117); BILIRUBIN,TOTAL 0.3 mg/dL (0.2-1.0); TOTAL PROTEIN 4.9 g/dL (6.4-8.2)
[2018-08-19 06:32] LABS: MD YES
[2018-08-19 06:36] LABS: <PLATELET ESTIMATE> ADEQUATE; <PLT MORPHOLOGY> NORMAL PLT MORPH; ANISOCYTOSIS 1+; BAND#(MANUAL) 0.05 x10^3/uL; BANDS%(MANUAL) 1 % (0-7); EOS#(MANUAL) 0.05 x10^3/uL (0.0-0.4); EOS% (MANUAL) 1 % (1-7); LYMPH#(MANUAL) 0.95 x10^3/uL (1-3.4); LYMPHS% (MANUAL) 21 % (22-44); MONOS#(MANUAL) 0.27 x10^3/uL (0.3-2.7); MONOS% (MANUAL) 6 % (2-9); SEGS% (MANUAL) 71 % (42-75)
[2018-08-19 06:52] VITALS: BP 130/73
[2018-08-19] MEDS: PHENYTOIN 100 MG CAPSULE PO SCH (08:55)
[2018-08-19] MEDS: GABAPENTIN 400 MG CAPSULE PO SCH (08:55)
[2018-08-19] MEDS: POLYMYX B SULF OP SCH (08:56)
[2018-08-19] MEDS: NEO OP SCH (08:56)
[2018-08-19] MEDS: DEXAMETH OP SCH (08:56)
[2018-08-19 12:05] VITALS: BP 180/73
== END 2018-08-19 13:28 | disposition home or self-care (01) | DRG 314 ==
LOC: ED 02:02 → EDIP 05:02 → CCU 08:17 → 4EST 17:29 → DCLOUNGE 08-19 12:30
PROVIDERS: ADMIT Hospitalist; ATTEND Hospitalist
PROC: 0T9B70Z Drainage of Bladder with Drainage Device, Via Natural or Artificial Opening (ICD-10-PCS; principal; 2018-08-18)
PROC: 02HV33Z Insertion of Infusion Device into Superior Vena Cava, Percutaneous Approach (ICD-10-PCS; 2018-08-18)
PROC: B548ZZA Ultrasonography of Superior Vena Cava, Guidance (ICD-10-PCS; 2018-08-18)
DX: I95.9 Hypotension, unspecified (principal); N17.0 Acute kidney failure with tubular necrosis; K92.1 Melena; G93.40 Encephalopathy, unspecified; D64.9 Anemia, unspecified; E78.5 Hyperlipidemia, unspecified; E86.1 Hypovolemia; E87.6 Hypokalemia; G40.909 Epilepsy, unspecified, not intractable, without status epilepticus; G62.9 Polyneuropathy, unspecified; G43.909 Migraine, unspecified, not intractable, without status migrainosus; H26.9 Unspecified cataract; H40.9 Unspecified glaucoma; I10 Essential (primary) hypertension; J43.9 Emphysema, unspecified; T68.XXXA Hypothermia, initial encounter; M50.30 Other cervical disc degeneration, unspecified cervical region; S01.01XA Laceration without foreign body of scalp, initial encounter; S01.81XA Laceration without foreign body of other part of head, initial encounter; W19.XXXA Unspecified fall, initial encounter; Y92.009 Unspecified place in unspecified non-institutional (private) residence as the place of occurrence of the external cause; Z79.02 Long term (current) use of antithrombotics/antiplatelets; Z82.49 Family history of ischemic heart disease and other diseases of the circulatory system; Z87.891 Personal history of nicotine dependence; Z87.01 Personal history of pneumonia (recurrent); Z87.440 Personal history of urinary (tract) infections; Z88.0 Allergy status to penicillin; Z88.5 Allergy status to narcotic agent; Z88.8 Allergy status to other drugs, medicaments and biological substances; Z79.899 Other long term (current) drug therapy
CPT/HCPCS: 36415; 51702; 70450; 71045; 72125; 74176; 80053; 80185; 80307; 81001; 82140; 82533; 82962; 83605; 83735; 84100; 84145; 84443; 84484; 85014; 85018; 85025; 85610; 85730; 86850; 86900; 87040; 87081; 87086; 93005; 96360; 96361; 96372; G0378; J1650; J3480; J3490; J7030

== ENCOUNTER 2021-05-23 17:21 | Emergency (ER) | payer MEDICARE, MEDICAID ==
[~2021-05-23] VITALS: Ht 149.9 cm; Wt 47.6 kg
[~2021-05-23 17:21] MED LIST changes: +BELSOMRA PO; -BUME0.5T PO; +BUME0.5T2 PO; +CEFD300C37 PO; +CITA10TA8 PO; +HYDR-2214 PO; +HYDR-3248 PO; -HYDR-3307 PO; +HYDR-826 PO; -HYDR25TA11 PO; +LAMO25TA5 PO; -LATA2.5D3 EACHEYE; +LATA2.5D4 EACHEYE; +METR500T PO; -MIRT30TA6 PO; +MIRT30TA97 PO; +MONT10TA17 PO; -MONT10TA9 PO; -TIZA4TAB PO; +TIZA4TAB2 PO; +[UNRECOGNIZED DRUG - CODE] PO
--- NOTE | 2021-05-23 18:52 | NUR ---
Pt had GLF tripped and fell while taking dog out at 1am last night, no LOC, pos pulses distal to injury. Large ecchymotic area to right mid humerus.
[2021-05-23] MEDS ORDERED: HYDROmorphone 1 MG/ML, 1ML INJ ONE (19:54)
[2021-05-23] MEDS ORDERED: ONDANSETRON ODT 4 MG ONE (19:55)
[2021-05-23] MEDS ORDERED: ONDANSETRON ODT 4 MG PO ONE (20:00)
[2021-05-23] MEDS ORDERED: HYDROmorphone 1 MG/ML, 1ML INJ IM ONE (20:00)
[2021-05-23 21:36] VITALS: BP 133/74
== END 2021-05-23 19:00 | disposition home or self-care (01) ==
LOC: ED 18:00
DX: S42.251A Displaced fracture of greater tuberosity of right humerus, initial encounter for closed fracture (principal); I10 Essential (primary) hypertension; J44.9 Chronic obstructive pulmonary disease, unspecified; Z87.891 Personal history of nicotine dependence; W01.0XXA Fall on same level from slipping, tripping and stumbling without subsequent striking against object, initial encounter; Y93.89 Activity, other specified; Y92.009 Unspecified place in unspecified non-institutional (private) residence as the place of occurrence of the external cause; Y99.8 Other external cause status
CPT/HCPCS: 29105; 73030; 73060; 96372; 99284; J1170; Q0162

== ENCOUNTER 2021-08-02 18:54 | Inpatient (IN) | payer MEDICARE, MEDICAID ==
[~2021-08-02] VITALS: Ht 149.9 cm; Wt 55.0 kg
--- NOTE | 2021-08-02 19:01 | NUR ---
PT BROUGHT IN BY [facility] FROM HOME C/O GLF WHILE GOING UP ONE STEP. PT DENIES ANY LOC, DID NOT HIT HEAD, C/O R HIP PAIN. NO OBVIOUS INJURY OR DEFORMITY NOTED. NO ROTATION. PT IS ON PLAVIX. PT TOOK HOME DOSE OF HYDROCODONE FOR PAIN AND ADMITS TO DAILY ETOH (12 BEERS) HAD ETOH THIS MORNING. EMS ESTABLISHED 20G R HAND AND GAVE 4MG ZOFRAN AND 100MCG TOTAL FENTANYL. LAST DOSE PAIN MEDS 1838. PT IS NOT VACCINATED
[2021-08-02] MEDS ORDERED: FENTANYL PF 100 MCG/2ML IVPush PRN (19:30)
[2021-08-02] MEDS ORDERED: SODIUM CHLORIDE 0.9% 1,000 ML IV ONE (19:30)
[2021-08-02] MEDS ORDERED: SODIUM CHLORIDE FLUSH 10ML SYR IVF ONE (19:30)
[2021-08-02] MEDS ORDERED: FENTANYL PF 100 MCG/2ML ONE ×2 (19:40→20:34)
[2021-08-02 19:42] LABS: BASOPHILS % (AUTO) 0 % (0-1); EOSINOPHILS % (AUTO) 0 % (1-7); LYMPHOCYTES % (AUTO) 8 % (22-44); MEAN CORPUSCULAR HEMOGLOBIN 31.3 pg (27.0-34.8); MEAN CORPUSCULAR HGB CONC 33.3 g/dL (32.4-35.8); MONOCYTES % (AUTO) 7 % (2-9); NEUTROPHILS % (AUTO) 85 % (42-75); PLATELET COUNT 275 x10^3/uL (130-400); RED BLOOD COUNT 3.89 x10^6/uL (3.82-5.3); RED CELL DISTRIBUTION WIDTH 13.3 % (9.6-15.2)
[2021-08-02 19:53] LABS: ALANINE AMINOTRANSFERASE 9 U/L (12-78); ALBUMIN 3.3 g/dL (3.4-5.0); ANION GAP 8 mmol/L (5-15); CALCIUM 8.3 mg/dL (8.5-10.1); CHLORIDE 98 mmol/L (98-107); CREATININE 0.57 mg/dL (0.55-1.02)
[2021-08-02 19:56] LABS: ALKALINE PHOSPHATASE 147 U/L (45-117); BILIRUBIN,TOTAL 0.7 mg/dL (0.2-1.0); INTERNATIONAL NORMALIZED RATIO 0.99 (0.93-1.1); PROTHROMBIN TIME 10.6 Seconds (9.6-11.5); TOTAL PROTEIN 6.6 g/dL (6.4-8.2)
[2021-08-02] MEDS ORDERED: FENTANYL PF 100 MCG/2ML IVPush ONE (20:30)
[2021-08-02] MEDS ORDERED: BISACODYL 10 MG SUPP PR PRN (20:30)
[2021-08-02] MEDS: SODIUM CHLORIDE 0.9% 1,000 ML IV SCH (20:30)
[2021-08-02] MEDS ORDERED: ONDANSETRON 2MG/ML, 2ML IVPush PRN (20:30)
[2021-08-02] MEDS ORDERED: TEMPLATE NON-FORMULARY MED. (Melatonin/Pyridoxine Hcl (B6)** (Melatonin 5 Mg Tablet**) 1 T PO SCH (21:00)
[2021-08-02] MEDS ORDERED: BENZONATATE 100 MG CAPSULE PO PRN (21:00)
[2021-08-02] MEDS ORDERED: TEMPLATE NON-FORMULARY MED. (Brimonidine Tartrate/Timolol (Combigan Eye Drops) 1 DROP) OP SCH (21:00)
--- NOTE | 2021-08-02 21:02 | NUR ---
report given to ellen pak
[2021-08-02 21:45] VITALS: BP 144/75
[2021-08-02] MEDS: HYDROmorphone 2 MG/ML, 1ML IVPush PRN (21:57)
[2021-08-02] MEDS: ACETAMINOPHEN 325 MG TABLET PO PRN (21:58)
[2021-08-02] MEDS: LAMOTRIGINE 25 MG TABLET PO SCH (23:08)
[2021-08-02] MEDS: MONTELUKAST 10 MG TABLET PO SCH (23:08)
[2021-08-02] MEDS: GABAPENTIN 400 MG CAPSULE PO SCH (23:08)
[2021-08-02] MEDS: PRAVASTATIN 20 MG TABLET PO SCH (23:09)
[2021-08-02] MEDS: CARBIDOPA/LEVODOPA CR 50 MG/200 MG TABLET PO SCH (23:09)
[2021-08-02] MEDS: LATANOPROST OPHTH 0.005%, 2.5ML EACHEYE SCH (23:18)
[2021-08-02] MEDS: BRIMONIDINE TART. OPHTH 0.2%, 5ML OP SCH (23:18)
[2021-08-02] MEDS: TIMOLOL OPHTH 0.5%, 5ML OP SCH (23:19)
[2021-08-02] MEDS: NEO/POLY B/DEXA 5 ML DROPS OP SCH (23:33)
[2021-08-03] MEDS: HYDROmorphone 2 MG/ML, 1ML IVPush PRN ×3 (01:05→09:17)
[2021-08-03 02:09] VITALS: BP 96/51
[2021-08-03] MEDS: CARBIDOPA/LEVODOPA CR 50 MG/200 MG TABLET PO SCH ×4 (05:08→21:12)
[2021-08-03 05:34] LABS: BASOPHILS % (AUTO) 1 % (0-1); EOSINOPHILS % (AUTO) 1 % (1-7); LYMPHOCYTES % (AUTO) 20 % (22-44); MEAN CORPUSCULAR HEMOGLOBIN 31.7 pg (27.0-34.8); MEAN CORPUSCULAR HGB CONC 33.7 g/dL (32.4-35.8); MEAN PLATELET VOLUME 7.5 fL (7.4-10.4); MONOCYTES % (AUTO) 12 % (2-9); NEUTROPHILS % (AUTO) 66 % (42-75); PLATELET COUNT 248 x10^3/uL (130-400); RED CELL DISTRIBUTION WIDTH 13.3 % (9.6-15.2)
[2021-08-03 05:37] LABS: ANION GAP 5 mmol/L (5-15); CALCIUM 7.9 mg/dL (8.5-10.1); CHLORIDE 100 mmol/L (98-107)
[2021-08-03 05:41] LABS: CREATININE 0.51 mg/dL (0.55-1.02)
[2021-08-03] MEDS: SODIUM CHLORIDE 0.9% 1,000 ML IV SCH ×2 (06:35→16:18)
[2021-08-03 07:23] VITALS: BP 118/64
[2021-08-03] MEDS: NEO/POLY B/DEXA 5 ML DROPS OP SCH ×3 (09:00→19:27)
[2021-08-03] MEDS ORDERED: LOSARTAN 50MG TABLET PO SCH (09:00)
[2021-08-03] MEDS: FLUTICASONE/VILANTEROL 100-25MCG/INH INH SCH (09:00)
[2021-08-03] MEDS ORDERED: HYDROCHLOROTHIAZIDE 12.5 MG CAPSULE PO SCH (09:00)
[2021-08-03] MEDS: CITALOPRAM 10 MG TABLET PO SCH (09:17)
[2021-08-03] MEDS: GABAPENTIN 400 MG CAPSULE PO SCH ×3 (09:18→21:12)
[2021-08-03] MEDS: LAMOTRIGINE 25 MG TABLET PO SCH ×2 (09:18→21:11)
[2021-08-03] MEDS: TIMOLOL OPHTH 0.5%, 5ML OP SCH ×2 (09:20→21:10)
[2021-08-03] MEDS: BRIMONIDINE TART. OPHTH 0.2%, 5ML OP SCH ×2 (09:20→21:10)
[2021-08-03] MEDS ORDERED: CHLORHEXIDINE 15 ML UDC ONE (10:10)
[2021-08-03] MEDS ORDERED: FENTANYL PF 100 MCG/2ML ONE ×3 (10:12→12:31)
[2021-08-03] MEDS ORDERED: PROPOFOL 10 MG/ML, 20ML ONE (10:12)
[2021-08-03] MEDS ORDERED: CEFAZOLIN 1,000 MG ONE ×2 (10:13)
[2021-08-03] MEDS ORDERED: SUCCINYLCHOLINE 20 MG/ML, 10ML ONE (10:13)
[2021-08-03] MEDS ORDERED: ONDANSETRON 2MG/ML, 2ML ONE (10:13)
[2021-08-03] MEDS ORDERED: EPHEDRINE 50 MG/ML, 1ML ONE (11:02)
[2021-08-03] MEDS: FENTANYL PF 100 MCG/2ML IV PRN ×4 (11:58→12:32)
[2021-08-03] MEDS ORDERED: OXYcodone 5 MG/5 ML ORAL.SOL UDC PO PRN (12:00)
[2021-08-03] MEDS ORDERED: hydrALAzine 20 MG/ML, 1ML IV PRN (12:00)
[2021-08-03] MEDS ORDERED: ACETAMINOPHEN 325 MG TABLET PO PRN (12:00)
[2021-08-03] MEDS ORDERED: HYDROmorphone 1 MG/ML, 1ML INJ IVPush PRN (12:00)
[2021-08-03] MEDS ORDERED: KETOROLAC 30 MG/1 ML IV PRN (12:00)
[2021-08-03] MEDS ORDERED: LABETALOL 5MG/ML, 20ML IV PRN (12:00)
[2021-08-03] MEDS ORDERED: ONDANSETRON 2MG/ML, 2ML IVPush PRN (12:00)
[2021-08-03] MEDS ORDERED: KETOROLAC 30 MG/1 ML ONE (12:13)
[2021-08-03] MEDS ORDERED: OXYcodone 5 MG/5 ML ORAL.SOL UDC ONE (12:14)
[2021-08-03 13:15] VITALS: BP 93/61
[2021-08-03] MEDS ORDERED: LACTATED RINGERS 1,000 ML IVBOLUS ONE ×2 (14:30)
[2021-08-03 19:49] VITALS: BP 86/59
[2021-08-03] MEDS ORDERED: KETOROLAC 30 MG/1 ML IVPush SCH (20:00)
[2021-08-03] MEDS ORDERED: CEFAZOLIN 1,000 MG IM SCH (20:00)
[2021-08-03] MEDS: KETOROLAC 30 MG/1 ML IVPush SCH (20:30)
[2021-08-03] MEDS: ASPIRIN 81 MG TABLET EC PO SCH (20:36)
[2021-08-03] MEDS: PYRIDOXINE (Vitamin B6) 50MG TAB PO SCH (21:00)
[2021-08-03] MEDS: LATANOPROST OPHTH 0.005%, 2.5ML EACHEYE SCH (21:00)
[2021-08-03] MEDS: MELATONIN 5 MG TABLET PO SCH (21:12)
[2021-08-03] MEDS: MONTELUKAST 10 MG TABLET PO SCH (21:12)
[2021-08-03] MEDS: DOCUSATE 100 MG CAPSULE PO SCH (21:12)
[2021-08-03] MEDS: PRAVASTATIN 20 MG TABLET PO SCH (21:12)
[2021-08-03] MEDS: ACETAMINOPHEN 325 MG TABLET PO PRN (21:13)
[2021-08-03] MEDS: CEFAZOLIN PMX 1GM/50ML 50 ML IVPB SCH (21:17)
[2021-08-03 22:20] VITALS: BP_SYST 73; BP_SYST 78; BP_DIAS 31; BP_DIAS 45
[2021-08-04] VITALS (11 sets, daily range): BP systolic 77–136; BP diastolic 34–70
[2021-08-04] MEDS ORDERED: SODIUM CHLORIDE 0.9% 1,000ML IVBOLUS ONE (02:00)
[2021-08-04] MEDS ORDERED: SODIUM CHLORIDE 0.9%, 500ML IVBOLUS PRN (02:00)
[2021-08-04] MEDS: KETOROLAC 30 MG/1 ML IVPush SCH ×2 (03:55→11:51)
[2021-08-04] MEDS: ACETAMINOPHEN 325 MG TABLET PO PRN ×2 (03:55→10:19)
[2021-08-04] MEDS: SODIUM CHLORIDE 0.9% 1,000 ML IV SCH ×3 (03:56→15:50)
[2021-08-04] MEDS: CARBIDOPA/LEVODOPA CR 50 MG/200 MG TABLET PO SCH ×4 (06:04→21:12)
[2021-08-04] MEDS: CEFAZOLIN PMX 1GM/50ML 50 ML IVPB SCH (06:04)
[2021-08-04 06:07] LABS: ALANINE AMINOTRANSFERASE 7 U/L (12-78); ANION GAP 7 mmol/L (5-15); CALCIUM 7.3 mg/dL (8.5-10.1); CHLORIDE 101 mmol/L (98-107); CREATININE 0.75 mg/dL (0.55-1.02)
[2021-08-04 06:09] LABS: ALKALINE PHOSPHATASE 92 U/L (45-117); BILIRUBIN,TOTAL 0.5 mg/dL (0.2-1.0); TOTAL PROTEIN 4.7 g/dL (6.4-8.2)
[2021-08-04 06:11] LABS: BASOPHILS % (AUTO) 1 % (0-1); EOSINOPHILS % (AUTO) 1 % (1-7); LYMPHOCYTES % (AUTO) 15 % (22-44); MEAN CORPUSCULAR HEMOGLOBIN 31.3 pg (27.0-34.8); MEAN CORPUSCULAR HGB CONC 32.6 g/dL (32.4-35.8); MEAN PLATELET VOLUME 7.5 fL (7.4-10.4); MONOCYTES % (AUTO) 12 % (2-9); NEUTROPHILS % (AUTO) 72 % (42-75); PLATELET COUNT 188 x10^3/uL (130-400)
[2021-08-04] MEDS ORDERED: POTASSIUM CHLORIDE 20 MEQ TAB.ER.PRT PO ONE (06:30)
[2021-08-04] MEDS: ENOXAPARIN 40 MG/0.4 ML SQ SCH (07:32)
[2021-08-04] MEDS: TIMOLOL OPHTH 0.5%, 5ML OP SCH ×2 (08:25→21:10)
[2021-08-04] MEDS: ASPIRIN 81 MG TABLET EC PO SCH ×2 (08:25→21:11)
[2021-08-04] MEDS: CITALOPRAM 10 MG TABLET PO SCH (08:25)
[2021-08-04] MEDS: DOCUSATE 100 MG CAPSULE PO SCH ×2 (08:25→21:12)
[2021-08-04] MEDS: BRIMONIDINE TART. OPHTH 0.2%, 5ML OP SCH ×2 (08:26→21:00)
[2021-08-04] MEDS: LAMOTRIGINE 25 MG TABLET PO SCH ×2 (08:26→21:12)
[2021-08-04] MEDS: FLUTICASONE/VILANTEROL 100-25MCG/INH INH SCH (08:26)
[2021-08-04] MEDS: NEO/POLY B/DEXA 5 ML DROPS OP SCH ×3 (08:26→21:00)
[2021-08-04] MEDS: HYDROmorphone 2 MG/ML, 1ML IVPush PRN (20:11)
[2021-08-04] MEDS: PYRIDOXINE (Vitamin B6) 50MG TAB PO SCH (21:00)
[2021-08-04] MEDS: LATANOPROST OPHTH 0.005%, 2.5ML EACHEYE SCH (21:11)
[2021-08-04] MEDS: PRAVASTATIN 20 MG TABLET PO SCH (21:12)
[2021-08-04] MEDS: MONTELUKAST 10 MG TABLET PO SCH (21:12)
[2021-08-04] MEDS: MELATONIN 5 MG TABLET PO SCH (21:12)
[2021-08-05] MEDS: HYDROmorphone 2 MG/ML, 1ML IVPush PRN (00:26)
[2021-08-05 00:32] VITALS: BP 118/76
[2021-08-05 04:55] LABS: MICROSCOPIC INDICATED
[2021-08-05] MEDS: SODIUM CHLORIDE 0.9% 1,000 ML IV SCH ×4 (05:10→17:09)
[2021-08-05 05:34] LABS: BASOPHILS % (AUTO) 1 % (0-1); EOSINOPHILS % (AUTO) 2 % (1-7); LYMPHOCYTES % (AUTO) 12 % (22-44); MEAN CORPUSCULAR HEMOGLOBIN 31.4 pg (27.0-34.8); MEAN CORPUSCULAR HGB CONC 33.9 g/dL (32.4-35.8); MEAN PLATELET VOLUME 7.5 fL (7.4-10.4); MONOCYTES % (AUTO) 11 % (2-9); NEUTROPHILS % (AUTO) 75 % (42-75); PLATELET COUNT 169 x10^3/uL (130-400); RED BLOOD COUNT 2.82 x10^6/uL (3.82-5.3)
[2021-08-05 05:49] LABS: ANION GAP 4 mmol/L (5-15); CALCIUM 7.7 mg/dL (8.5-10.1); CHLORIDE 102 mmol/L (98-107); CREATININE 0.39 mg/dL (0.55-1.02)
[2021-08-05] MEDS: HYDROcodone/APAP 7.5-325MG/15ML UDC PO PRN ×2 (05:52→10:48)
[2021-08-05] MEDS: CARBIDOPA/LEVODOPA CR 50 MG/200 MG TABLET PO SCH ×4 (05:52→20:45)
[2021-08-05] MEDS: ENOXAPARIN 40 MG/0.4 ML SQ SCH (05:53)
[2021-08-05 07:25] VITALS: BP 138/74
[2021-08-05] MEDS: CITALOPRAM 10 MG TABLET PO SCH (08:00)
[2021-08-05] MEDS: LAMOTRIGINE 25 MG TABLET PO SCH ×2 (08:00→20:46)
[2021-08-05] MEDS: ASPIRIN 81 MG TABLET EC PO SCH ×2 (08:00→20:45)
[2021-08-05] MEDS: DOCUSATE 100 MG CAPSULE PO SCH ×2 (08:00→20:46)
[2021-08-05] MEDS: TIMOLOL OPHTH 0.5%, 5ML OP SCH ×2 (08:01→20:44)
[2021-08-05] MEDS: FLUTICASONE/VILANTEROL 100-25MCG/INH INH SCH (08:02)
[2021-08-05] MEDS: BRIMONIDINE TART. OPHTH 0.2%, 5ML OP SCH ×2 (08:02→20:45)
[2021-08-05] MEDS: NEO/POLY B/DEXA 5 ML DROPS OP SCH ×3 (08:02→20:47)
[2021-08-05 14:07] VITALS: BP 178/68
[2021-08-05] MEDS ORDERED: TRAM50TA2 PO (15:54)
[2021-08-05] MEDS: LATANOPROST OPHTH 0.005%, 2.5ML EACHEYE SCH (20:45)
[2021-08-05] MEDS: MONTELUKAST 10 MG TABLET PO SCH (20:45)
[2021-08-05] MEDS: MELATONIN 5 MG TABLET PO SCH (20:45)
[2021-08-05] MEDS: PRAVASTATIN 20 MG TABLET PO SCH (20:45)
[2021-08-05] MEDS: PYRIDOXINE (Vitamin B6) 50MG TAB PO SCH (20:46)
[2021-08-05 22:30] VITALS: BP 186/74
[2021-08-05] MEDS ORDERED: LOSARTAN 25MG TABLET PO ONE (23:00)
[2021-08-06 01:05] VITALS: BP 193/83
[2021-08-06] MEDS: HYDROcodone/APAP 7.5-325MG/15ML UDC PO PRN ×3 (01:09→14:07)
[2021-08-06 02:13] VITALS: BP 145/70
[2021-08-06] MEDS ORDERED: ENALAPRILAT 1.25 MG/ML, 1ML IVPush PRN (02:30)
[2021-08-06] MEDS: SODIUM CHLORIDE 0.9% 1,000 ML IV SCH ×3 (05:01→15:13)
[2021-08-06] MEDS: ENOXAPARIN 40 MG/0.4 ML SQ SCH (05:28)
[2021-08-06] MEDS: CARBIDOPA/LEVODOPA CR 50 MG/200 MG TABLET PO SCH ×4 (05:28→21:02)
[2021-08-06 06:42] VITALS: BP 171/65
[2021-08-06] MEDS: LOSARTAN 25MG TABLET PO SCH (08:43)
[2021-08-06] MEDS: LAMOTRIGINE 25 MG TABLET PO SCH ×2 (08:43→21:00)
[2021-08-06] MEDS: CITALOPRAM 10 MG TABLET PO SCH (08:43)
[2021-08-06] MEDS: ASPIRIN 81 MG TABLET EC PO SCH ×2 (08:43→21:02)
[2021-08-06] MEDS: DOCUSATE 100 MG CAPSULE PO SCH ×2 (08:44→21:00)
[2021-08-06] MEDS: NEO/POLY B/DEXA 5 ML DROPS OP SCH ×3 (08:45→21:00)
[2021-08-06] MEDS: FLUTICASONE/VILANTEROL 100-25MCG/INH INH SCH (09:00)
[2021-08-06] MEDS: BRIMONIDINE TART. OPHTH 0.2%, 5ML OP SCH ×2 (09:00→21:00)
[2021-08-06] MEDS: TIMOLOL OPHTH 0.5%, 5ML OP SCH ×2 (09:00→21:00)
[2021-08-06] MEDS ORDERED: POLYETHYLENE GLYCOL 17 GM PACKET ONE (10:36)
[2021-08-06] MEDS: POLYETHYLENE GLYCOL 17 GM PACKET PO SCH ×2 (10:39→21:00)
[2021-08-06 14:01] VITALS: BP 140/74
[2021-08-06] MEDS: GABAPENTIN 400 MG CAPSULE PO SCH ×2 (17:09→21:02)
[2021-08-06] MEDS: CEFTRIAXONE 1,000 MG in DEXTROSE 5% 50 ML IVPB SCH (18:07)
[2021-08-06 20:58] VITALS: BP 169/67
[2021-08-06] MEDS: PYRIDOXINE (Vitamin B6) 50MG TAB PO SCH (21:00)
[2021-08-06] MEDS: LATANOPROST OPHTH 0.005%, 2.5ML EACHEYE SCH (21:00)
[2021-08-06] MEDS: MELATONIN 5 MG TABLET PO SCH (21:00)
[2021-08-06] MEDS: OXYcodone IR 5MG TABLET PO PRN (21:01)
[2021-08-06] MEDS: MONTELUKAST 10 MG TABLET PO SCH (21:02)
[2021-08-06] MEDS: PRAVASTATIN 20 MG TABLET PO SCH (21:03)
[2021-08-07 01:08] VITALS: BP 137/71
[2021-08-07] MEDS: OXYcodone IR 5MG TABLET PO PRN (02:06)
[2021-08-07] MEDS: CARBIDOPA/LEVODOPA CR 50 MG/200 MG TABLET PO SCH ×3 (05:20→15:12)
[2021-08-07] MEDS: ENOXAPARIN 40 MG/0.4 ML SQ SCH (05:20)
[2021-08-07 05:48] LABS: BASOPHILS % (AUTO) 0 % (0-1); EOSINOPHILS % (AUTO) 1 % (1-7); LYMPHOCYTES % (AUTO) 14 % (22-44); MEAN CORPUSCULAR HEMOGLOBIN 31.3 pg (27.0-34.8); MEAN CORPUSCULAR HGB CONC 34.3 g/dL (32.4-35.8); MEAN PLATELET VOLUME 7.2 fL (7.4-10.4); MONOCYTES % (AUTO) 13 % (2-9); NEUTROPHILS % (AUTO) 73 % (42-75); PLATELET COUNT 259 x10^3/uL (130-400); RED BLOOD COUNT 2.84 x10^6/uL (3.82-5.3); RED CELL DISTRIBUTION WIDTH 14.2 % (9.6-15.2)
[2021-08-07 05:56] LABS: ANION GAP 8 mmol/L (5-15); CALCIUM 8.3 mg/dL (8.5-10.1); CHLORIDE 94 mmol/L (98-107)
[2021-08-07 05:58] LABS: CREATININE 0.39 mg/dL (0.55-1.02)
[2021-08-07] MEDS ORDERED: POTASSIUM CHLORIDE 20 MEQ TAB.ER.PRT PO ONE (08:30)
[2021-08-07 08:42] VITALS: BP 152/65
[2021-08-07] MEDS: BRIMONIDINE TART. OPHTH 0.2%, 5ML OP SCH ×2 (09:00→11:15)
[2021-08-07] MEDS: DOCUSATE 100 MG CAPSULE PO SCH (09:00)
[2021-08-07] MEDS: TIMOLOL OPHTH 0.5%, 5ML OP SCH ×2 (09:00→11:14)
[2021-08-07] MEDS: POLYETHYLENE GLYCOL 17 GM PACKET PO SCH (09:00)
[2021-08-07] MEDS: NEO/POLY B/DEXA 5 ML DROPS OP SCH ×2 (09:00→15:12)
[2021-08-07] MEDS: LOSARTAN 25MG TABLET PO SCH (09:28)
[2021-08-07] MEDS: CITALOPRAM 10 MG TABLET PO SCH (09:28)
[2021-08-07] MEDS: GABAPENTIN 400 MG CAPSULE PO SCH ×3 (09:28→15:12)
[2021-08-07] MEDS: LAMOTRIGINE 25 MG TABLET PO SCH (09:28)
[2021-08-07] MEDS: ASPIRIN 81 MG TABLET EC PO SCH (09:28)
[2021-08-07] MEDS: SODIUM CHLORIDE 1 GM TABLET PO SCH ×2 (09:37→16:36)
[2021-08-07] MEDS: FLUTICASONE/VILANTEROL 100-25MCG/INH INH SCH (11:14)
[2021-08-07] MEDS ORDERED: OXYcodone IR 5MG TABLET PO PRN (12:30)
[2021-08-07] MEDS ORDERED: BISA10SU4 PR (13:31)
[2021-08-07] MEDS ORDERED: LOSA50TA14 PO (13:31)
[2021-08-07] MEDS ORDERED: SODI1TAB PO (13:31)
[2021-08-07] MEDS ORDERED: GABA-827 PO (13:31)
[2021-08-07] MEDS ORDERED: ASPI81TA45 PO (13:31)
[2021-08-07] MEDS ORDERED: OXYC5TAB98 PO (13:31)
[2021-08-07] MEDS ORDERED: DOCU-181 PO (13:31)
[2021-08-07] MEDS ORDERED: ENOX40SY4 SQ (13:31)
[2021-08-07] MEDS ORDERED: POLY17PO5 PO (13:31)
[2021-08-07] MEDS ORDERED: CIPR250T27 PO (14:47)
[2021-08-07 15:00] VITALS: BP 151/61
[2021-08-07] MEDS: CEFTRIAXONE 1,000 MG in DEXTROSE 5% 50 ML IVPB SCH (16:36)
== END 2021-08-07 17:20 | DRG 481 ==
LOC: ED 19:40 → EDIP 19:56 → 4NE 20:55
PROVIDERS: ADMIT Emergency Medicine; ATTEND Internal Medicine
PROC: 0QS606Z Reposition Right Upper Femur with Intramedullary Internal Fixation Device, Open Approach (ICD-10-PCS; principal; 2021-08-03 11:00)
PROC: 30233N1 Transfusion of Nonautologous Red Blood Cells into Peripheral Vein, Percutaneous Approach (ICD-10-PCS; 2021-08-04)
PROC: 0T9B30Z Drainage of Bladder with Drainage Device, Percutaneous Approach (ICD-10-PCS; 2021-08-05)
DX: S72.141A Displaced intertrochanteric fracture of right femur, initial encounter for closed fracture (principal); E87.1 Hypo-osmolality and hyponatremia; D62 Acute posthemorrhagic anemia; D72.829 Elevated white blood cell count, unspecified; E78.5 Hyperlipidemia, unspecified; E87.6 Hypokalemia; G20 Parkinson's disease; G25.81 Restless legs syndrome; G40.909 Epilepsy, unspecified, not intractable, without status epilepticus; G62.9 Polyneuropathy, unspecified; H26.9 Unspecified cataract; H40.9 Unspecified glaucoma; I10 Essential (primary) hypertension; Z20.822 Contact with and (suspected) exposure to COVID-19; W01.0XXA Fall on same level from slipping, tripping and stumbling without subsequent striking against object, initial encounter; J44.9 Chronic obstructive pulmonary disease, unspecified; Z60.2 Problems related to living alone; Z87.828 Personal history of other (healed) physical injury and trauma; Z82.49 Family history of ischemic heart disease and other diseases of the circulatory system; Z79.899 Other long term (current) drug therapy; Z79.51 Long term (current) use of inhaled steroids; Z79.02 Long term (current) use of antithrombotics/antiplatelets; Y93.89 Activity, other specified; Y92.89 Other specified places as the place of occurrence of the external cause; Y99.8 Other external cause status; Z88.0 Allergy status to penicillin; Z88.5 Allergy status to narcotic agent; Z88.8 Allergy status to other drugs, medicaments and biological substances
CPT/HCPCS: 36415; 36430; 71045; 76000; 80048; 80053; 81001; 83735; 85025; 85610; 86850; 86900; 86923; 87077; 87086; 87186; 87635; 93005; 96374; C1713; G0378; J0690; J0696; J1170; J1650; J1885; J2405; J2704; J3010; J0330; J7030; J7120; P9016